=== PATIENT | male | born 2005 | race Caucasian/White ===

== ENCOUNTER 2024-01-05 11:17 | Emergency (ER) | payer SELFPAY ==
[~2024-01-05] VITALS: Ht 180.3 cm; Wt 81.6 kg
[2024-01-05 11:17] VITALS: BP 152/88; PULSE 71; RESP 18; TEMP 98.3; O2SAT 96
[2024-01-05] MEDS ORDERED: FUL-GLO OP ONE (11:28)
[2024-01-05] MEDS ORDERED: TETRACAINE HCL ONE (11:28)
[2024-01-05 12:01] VITALS: BP 147/86; PULSE 76; RESP 18; TEMP 98.3; O2SAT 98
== END 2024-01-05 12:08 | disposition home or self-care (01) ==
LOC: ER 11:17
DX: S00.211A Abrasion of right eyelid and periocular area, initial encounter (principal); X58.XXXA Exposure to other specified factors, initial encounter; Y93.89 Activity, other specified; Y92.89 Other specified places as the place of occurrence of the external cause; Y99.8 Other external cause status
CPT/HCPCS: 99283